=== PATIENT | female | born 1990 | race Caucasian/White ===

== ENCOUNTER 2017-08-12 07:32 | Emergency (ER) | payer OTHER ==
[~2017-08-12] VITALS: Ht 167.6 cm; Wt 95.3 kg
[~2017-08-12 07:32] MED LIST: BIRTH CONTROL; FLONASE 0.05%50 MCG NASAL; IBUPROFEN 800800 MG PO; NAPROSYN500 MG PO; NORCO 5-325 TA1 EACH PO; ZOFRAN ODT4 MG PO; ZPAK PO
[2017-08-12] MEDS ORDERED: PROPRANOLOL 1010 MG PO (07:40)
[2017-08-12 08:11] LABS: URINE BILIRUBIN NEGATIVE (Negative); URINE BLOOD NEGATIVE (Negative); URINE CLARITY SL CLOUDY; URINE COLOR YELLOW; URINE GLUCOSE-RANDOM* NEGATIVE (Negative); URINE KETONES 2+ (Negative); URINE LEUKOCYTES-REFLEX NEGATIVE (Negative); URINE NITRITE-REFLEX NEGATIVE (Negative); URINE PROTEIN (DIPSTICK) NEGATIVE (Negative); URINE SPECIFIC GRAVITY >= 1.030 (1.005-1.035); URINE UROBILINOGEN 0.2 E.U./dl (0.2-1.0)
== END 2017-08-12 09:07 | disposition home or self-care (01) ==
LOC: ER 07:32
PROVIDERS: Emergency Medicine
DX: R50.9 Fever, unspecified (principal); J40 Bronchitis, not specified as acute or chronic

== ENCOUNTER 2017-09-01 22:20 | Emergency (ER) | payer OTHER ==
[~2017-09-01] VITALS: Ht 170.2 cm; Wt 77.1 kg
[~2017-09-01 22:20] MED LIST changes: +PROPRANOLOL 1010 MG PO
[2017-09-01 22:41] LABS: URINE BILIRUBIN NEGATIVE (Negative); URINE BLOOD 2+ (Negative); URINE CLARITY CLEAR; URINE COLOR YELLOW; URINE GLUCOSE-RANDOM* NEGATIVE (Negative); URINE KETONES NEGATIVE (Negative); URINE LEUKOCYTES-REFLEX NEGATIVE (Negative); URINE NITRITE-REFLEX NEGATIVE (Negative); URINE PROTEIN (DIPSTICK) TRACE (Negative); URINE SPECIFIC GRAVITY >= 1.030 (1.005-1.035); URINE UROBILINOGEN 0.2 E.U./dl (0.2-1.0)
[2017-09-01 22:52] LABS: MUCUS >6 Heavy strn/LPF (None Seen); SQUAMOUS >10 Many /LPF (0-3)
[2017-09-01 22:53] LABS: CASTS None Seen /LPF (None Seen); CRYSTALS None Seen /LPF (None Seen); URINE RBC 0-2 Rare /HPF (0-2)
[2017-09-01 23:00] LABS: URINE WBC-REFLEX 0-5 Rare /HPF (0-5)
[2017-09-01] MEDS ORDERED: CARAFATE 1 GM TA1 G1 PO (23:22)
[2017-09-01] MEDS ORDERED: PROTONIX 20 MG20 M1 PO (23:22)
[2017-09-01] MEDS ORDERED: ZOFRAN ODT4 MG PO (23:22)
== END 2017-09-01 23:47 | disposition home or self-care (01) ==
LOC: ER 22:20
PROVIDERS: Emergency Medicine
DX: K52.9 Noninfective gastroenteritis and colitis, unspecified (principal)